=== PATIENT | female | born 1990 | race Caucasian/White ===

== ENCOUNTER 2017-09-05 06:33 | Emergency (ER) | payer OTHER, SELFPAY ==
[2017-09-05 06:34] VITALS: BP 130/83; PULSE 71; RESP 18; TEMP 36.6; O2SAT 100; BMI 29.2
--- NOTE | 2017-09-05 07:14 | ED.VISSUMM ---
- ER Visit Summary Date of Service: 09/05/17 Chief Complaint: Occupational exposure History of Present Illness: The patient is a 27 F who was transporting a seizure patient who had emesis and saliva which he coughed or spit and some of this fluid got into the patient's mouth. She currently has no other complaints. She denies recent illness. She has no medical history. Physical Examination: Afebrile vitals are stable Moist mucous membranes Heart regular rate and rhythm Lungs are clear Abdomen soft Alert Test Results: Occupational exposure labs were drawn per the nursing protocol. Emergency Department Course and Treatment: This is a low risk exposure. No prophylaxis is indicated. Patient will follow up with [employer]. Patient discharged. Treatment Plan: [] Disposition: Discharge Impression: Occupational exposure This note was generated with [employer] dictation software. It may contain incorrect words, spelling, and punctuation that were not noted in review of the chart prior to signing ED Disposition - Plan for ED Patient: Chief Complaint: Occup Expose Referrals: Yuri Sousa III, MD [Primary Care Provider] -
--- NOTE | 2017-09-05 07:16 | ED.DEP ---
ED Disposition - Plan for ED Patient: Chief Complaint: Occup Expose Instructions: ED Body Fluid Exp HC Worker Referrals: Yuri Sousa III, MD [Primary Care Provider] -
[2017-09-05 08:33] LABS: HIV - WCH Non-Reactive (Nonreactive)
[2017-09-06 16:43] LABS: HEPATITIS B SURFACE AG Negative (Negative); Hep B Surface Antibodies EMP Reactive (.); Hep C Antibodies <0.1 s/co ratio (0.0-0.9)
== END 2017-09-05 07:36 | disposition home or self-care (01) ==
PROVIDERS: Emergency Medicine; Emergency Provider Emergency Medicine; Family Provider Family Medicine; PCP Family Medicine
DX: Z77.21 Contact with and (suspected) exposure to potentially hazardous body fluids (principal)
CPT/HCPCS: 86703; 86803; 87340; 99282

== ENCOUNTER → 2017-10-10 15:50 | Outpatient (CLI) | payer OTHER, SELFPAY | PROVIDERS: Family Provider Family Medicine; PCP Family Medicine; Visit Provider Physician Assistant | DX: S90.121A Contusion of right lesser toe(s) without damage to nail, initial encounter (principal); X58.XXXA Exposure to other specified factors, initial encounter; Y93.9 Activity, unspecified; Y92.9 Unspecified place or not applicable; Y99.9 Unspecified external cause status | CPT/HCPCS: 73660 ==

== ENCOUNTER 2022-09-02 12:39 | Emergency (ER) | payer OTHER, SELFPAY ==
[2022-09-02 12:41] VITALS: BP 142/96; PULSE 68; RESP 16; TEMP 36.7; O2SAT 98
--- NOTE | 2022-09-02 12:59 | EDS_ITS ---
HPI History of Present Illness Chief Complaint: General Illness Informant: patient Onset/Context/Timing Context: Gradual Onset Narrative Narrative: Patient presents secondary to anxiety and inability to sleep. She has a history of anxiety and panic attacks in the past. She is not currently on any medication. She has been undergoing stressful relationship issues and is currently undergoing a divorce. Patient states she is having trouble sleeping at night and her mind races. In the past she had a prescription for Ativan 0.5 mg to help with anxiety. The physician who prescribes this is currently retired. She called [facility] to be seen by a new provider but cannot get in until December. PFSH PFSH Medical History no medical history no medical history Home Medications norgestimate 0.25 mg-ethinyl estradiol 35 mcg tablet 1 tab PO DAILY 09/05/17 [History Last Taken Unknown] Flucelvax Quad [id number] (PF) 60 mcg (15 mcg x 4)/0.5 mL IM syringe (flu vac qs 2021(6 ms up)CD(PF)) 0.5 ml IM ONCE #0.5 mL 11/21/21 [Clinic Last Taken Unknown] hydroxyzine pamoate 25 mg capsule (Vistaril) 25 mg PO Q8H PRN anxiety #10 caps 09/02/22 [Rx Last Taken Unknown] lorazepam 1 mg tablet (Ativan) 1 mg PO TID PRN anxiety #10 tabs 09/02/22 [Rx Last Taken Unknown] Allergy/AdvReac Type Severity Reaction Status Date / Time No Known Allergies Allergy Verified 11/08/20 15:24 Family History Other Diabetes Hypertension Surgical History no surgical history Social History Smoking Status: Never smoker alcohol intake: current alcohol intake frequency: holidays/special occasions only Alcohol type: beer ROS ROS ED Constitutional Constitutional ED: Denies chills or fever(s) Eyes Eyes: Denies change in vision ENT ENT ED: Denies rhinorrhea Cardiovascular Cardiovascular: Denies chest pain or palpitations Respiratory/Chest Respiratory/Chest: Denies cough or dyspnea Gastrointestinal Gastrointestinal: Reports other Details: Decreased appetite ; Denies abdominal pain, nausea or vomiting Genitourinary Genitourinary ED: Denies dysuria Musculoskeletal Musculoskeletal: Denies back pain or extremity pain Integumentary Denies Abrasions or rash Neurologic Neurologic: Denies headache(s) or weakness Psychiatric Psychiatric: Reports anxiety, depression and other Details: Poor sleep and decreased p.o. intake. Endocrine Endocrinology: Denies polydipsia or polyuria Allergic/Immunologic Allergic/Immunologic ED: Denies lip swelling or urticaria EXAM Physical Exam Const Vital Signs: 09/02/22 12:41 09/02/22 12:43 Temperature 98.0 F Temperature Source Temporal Pulse Rate 68 Respiratory Rate 16 Respiratory Effort Normal Respiratory Pattern Normal Blood Pressure 142/96 H Blood Pressure Mean 111 Pulse Ox 98 Oxygen Delivery Method Room Air Positive well nourished and well developed General Appearance ED: well developed HEENT Reports moist mucous membranes Eyes EOMs intact bilaterally Neck no lymphadenopathy Chest Wall inspection of chest normal and palpation of chest normal Resp normal respiratory effort and clear to auscultation bilaterally Cardio regular rate and regular rhythm GI non-tender Palpation: soft Extremity normal to inspection Neuro oriented x3 and no sensory deficits noted Motor Exam: strength 5/5 throughout Psych Mood & Affect: depressed and anxious Skin no rashes or lesions noted MDM MDM MDM Narrative Medical decision making narrative: Patient will be given a short course of Ativan to help with anxiety, especially to help her sleep at night. We had a long discussion regarding the side effects of this and sedating effects and how it may affect her daily activities and job. I will also write her a short course of Vistaril. She can try this in place of Ativan to see which helps her better. We discussed not taking the 2 medications together. She was given information on the behavioral health program here at the hospital to see if she can get into see a provider sooner than December. Return instructions given. Discharge Plan Triage Chief Complaint: General Illness ED Provider: Didi Valencia Dx/Rx/DC Orders Clinical Impression: Anxiety, Panic attack Instructions: ED Anxiety Reaction, ED Panic Attack Prescriptions: New lorazepam [Ativan] 1 mg tablet 1 mg PO TID PRN (Reason: anxiety) Qty: 10 0RF Rx Instructions: 0.5-1 tab p.o. up to 3 times a day as needed for anxiety. hydroxyzine pamoate [Vistaril] 25 mg capsule 25 mg PO Q8H PRN (Reason: anxiety) Qty: 10 0RF No Action Flucelvax Quad (PF) 60 mcg (15 mcg x 4)/0.5 mL syringe 0.5 ml IM ONCE Qty: 0.5 0RF norgestimate-ethinyl estradiol 0.25-0. tablet 1 tab PO DAILY Patient Comments: Primary Care Provider: Care Physician,No Primary Referrals: Behavioral,Health [facility] [Group of Physicians] - As Needed Care Physician,No Primary [Primary Care Provider] - Disposition Disposition: Home, Self Care Discharge Date/Time: 09/02/22 13:15
== END 2022-09-02 13:15 | disposition home or self-care (01) ==
LOC: ED 13:05
PROVIDERS: Emergency Provider Emergency Medicine; Visit Provider Emergency Medicine
DX: F41.0 Panic disorder [episodic paroxysmal anxiety] (principal)
CPT/HCPCS: 99282

== ENCOUNTER 2024-02-09 11:36 | Emergency (ER) | payer OTHER, SELFPAY ==
[2024-02-09 11:37] VITALS: BP 143/103; PULSE 99; RESP 16; TEMP 36.8; O2SAT 100
--- NOTE | 2024-02-09 11:50 | RAD_ITS ---
STUDY: X-RAY - LEFT TIBIA AND FIBULA REASON FOR EXAM: Female, 33 years old. INJURY TECHNIQUE: 2 view(s) of the tibia and fibula were obtained. COMPARISON: None. FINDINGS: Normal visualized tibia. Normal visualized fibula. There is no demonstrated acute fracture. The soft tissue structures are unremarkable. RAD/Tibia & Fibula 2 Views IMPRESSION: Normal x-ray examination of the tibia and fibula. Electronically Signed: Fabiano Harkins MD at 12:53 EST ,
[2024-02-09 11:56] VITALS: BMI 33.2
--- NOTE | 2024-02-09 12:49 | ED.VIS.LOWEX ---
HPI History of Present Illness Chief Complaint: Lower Extremity Injury Informant: patient Narrative Narrative: Healthy 33-year-old female was ice-skating, she fell and her left lower extremity ended up beneath her bent at the knee, she ended up with an injury to the lateral aspect of the lower leg in the middle. Significant pain, difficulty standing on it but able. No other injuries. PFSH PFS Medical History Bilateral carpal tunnel syndrome Ganglion cyst of volar aspect of left wrist Home Medications ?Medication ?Instructions ?Recorded ?Last Taken ?Type Flucelvax Quad [id number] (PF) 60 0.5 ml IM ONCE #0.5 mL 11/21/21 Unknown Clinic mcg (15 mcg x 4)/0.5 mL IM syringe (flu vac qs 2021(6 ms up)CD(PF)) hydrocodone-acetaminophen 5-325mg 1 tab PO Q6H PRN PRN Pain 3 days 02/09/24 Unknown Rx 5mg-325mg #6 TABLETS Allergy/AdvReac Type Severity Reaction Status Date / Time No Known Allergies Allergy Verified 02/09/24 11:39 Family History Other Diabetes Hypertension Social History Smoking Status: Never smoker alcohol intake: current alcohol intake frequency: holidays/special occasions only Alcohol type: beer ROS ROS ED Constitutional Constitutional ED: Denies chills or fever(s) Musculoskeletal Musculoskeletal: Reports extremity pain; Denies neck pain Integumentary Denies Abrasions, rash or wounds Neurologic Neurologic: Denies paresthesias or weakness EXAM Physical Exam Const Vital Signs: 02/09/24 11:37 Temperature 98.2 F Temperature Source Temporal Pulse Rate 99 Respiratory Rate 16 Blood Pressure 143/103 H Blood Pressure Mean 116 Pulse Ox 100 Oxygen Delivery Method Room Air Positive well nourished and well developed General Appearance ED: well developed and NAD Neck full ROM and supple Back/Spine normal ROM and normal to inspection Extremity Extremity Narrative: Tender at the lateral compartment middle of the middle third of the left lower leg. No deformities. No swelling. All compartment soft and nondistended. Increased pain with inversion of the foot, passively stretching the lateral compartment musculature. There is no pain at the ankle with doing this, there is no tenderness around the ankle or the foot or the proximal fibula or the tibia or the knee. Knee exam is very benign all ligaments stable with no pain on stressing, she has full range of motion of the knee and ankle. Neuro oriented x3, no focal motor deficits and no sensory deficits noted Sensorium / Orientation: alert Psych mental status grossly normal and thought process normal Skin no wounds Rashes: no rashes MDM MDM MDM Narrative Medical decision making narrative: 2 view x-ray series of the left lower leg normal in my interpretation no fractures. Patient reassured this is likely a muscle/tendon strain of the lateral compartment of the lower leg, as evidenced by increased pain with passively stretching those structures with ankle inversion. In order to help patient limit this we will give her an Aircast for the ankle, NSAIDs, and a prescription for some Paguate to use at home, crutches if she needs them after trying to walk on Aircast. Discharge Plan Triage Chief Complaint: Lower Extremity Injury ED Provider: Fabiano Cotton Dx/Rx/DC Orders Clinical Impression: Strain of other muscle(s) and tendon(s) at lower leg level, left leg, initial encounter, Fall on ice wearing ice-skates Instructions: ED Muscle Strain, Extremity Prescriptions: New hydrocodone-acetaminophen 5-325 mg tablet 1 tab PO Q6H PRN PRN (Reason: Pain) 3 Days Qty: 6 0RF No Action Flucelvax Quad (PF) 60 mcg (15 mcg x 4)/0.5 mL syringe 0.5 ml IM ONCE Qty: 0.5 0RF Primary Care Provider: Care Physician,No Primary Referrals: Doctor,Your [Non-Staff] - 1 Week if not improving Print Language: Bahraini Disposition Disposition: Home, Self Care
[2024-02-09] MEDS: Naproxen 500 MG Tablet PO (12:53)
[2024-02-09] MEDS: oxyCODONE 5 MG Tablet PO (13:00)
== END 2024-02-09 13:13 | disposition home or self-care (01) ==
PROVIDERS: Emergency Provider Emergency Medicine; Visit Provider Emergency Medicine
DX: S86.812A Strain of other muscle(s) and tendon(s) at lower leg level, left leg, initial encounter (principal); W00.0XXA Fall on same level due to ice and snow, initial encounter; Y93.21 Activity, ice skating; Y99.8 Other external cause status
CPT/HCPCS: 73590; 99284